=== PATIENT | female | born 1980 | race Caucasian/White ===

== ENCOUNTER 2016-09-14 15:54 | Observation (INO) | payer OTHER ==
[~2016-09-14] VITALS: Ht 167.6 cm; Wt 74.9 kg
--- NOTE | ~2016-09-14 | D ---
[facility] [place] [address] DISCHARGE SUMMARY Name: HUGH LAUREN Room #: 401-I [facility] Sayda Russo#: [id number] Admission: 09/14/16 Attend Phys: Abraham Tate MD Discharge: 09/15/16 Date of : 78 Report #: [id number] THIS REPORT FOR: //name// CC: BLANCA Tate DATE OF SERVICE: 09/15/2016 DATE OF ADMISSION: 09/14/2016. DATE OF DISCHARGE: 09/15/2016. HISTORY OF PRESENT ILLNESS: The patient is healthy 36-year-old female who developed acute epigastric abdominal pain while she was at work. Please refer to the admission H and P for details. On pain medications, her symptoms have completely subsided. The patient was admitted to the hospital for further evaluation and possible treatment. HOSPITALIZATION COURSE: The patient was hospitalized. Her blood work, including liver function tests, was normal. Lipase was in the normal range. The patient had right upper quadrant ultrasound that was unremarkable. CT scan of the abdomen showed hepatic steatosis, but otherwise showed no acute abnormalities. Doppler ultrasonography of the right upper quadrant was performed, that showed no portal vein abnormalities. Since the brief episode of pain, the patient has been completely asymptomatic. Her test is negative. Hepatitis panel is negative. GI team also saw and evaluated the patient. PIPIDA scan is ordered, that is pending. If negative, the patient will be discharged home. DISCHARGE DIAGNOSES: Brief episode of epigastric pain, as detailed above, with essentially unremarkable evaluation. PIPIDA scan and Monospot test are pending at the time of this dictation. If PIPIDA scan is negative, the patient will be discharged home with outpatient followup. <ELECTRONICALLY SIGNED> By: Monica Casas MD 09/18/16 [id number] Monica Casas MD /nt
--- NOTE | ~2016-09-14 | H ---
[facility] [place] [address] HISTORY AND PHYSICAL Name: HUGH LAUREN Room #: 401-I [facility] Sayda Russo#: [id number] Admission: 09/14/16 Attend Phys: Abraham Tate MD Discharge: 09/15/16 Date of : 78 Report #: [id number] THIS REPORT FOR: //name// CC: BLANCA Tate ATTENDING PHYSICIAN: Abraham Tate MD PRIMARY CARE PHYSICIAN: Blanca Johnston NP CHIEF COMPLAINT: Epigastric abdominal pain. HISTORY OF PRESENT ILLNESS: The patient is a 36-year-old female who actually works here at [employer] in the [place]. She came in to work [employer] complaining of epigastric abdominal pain. This had come on fairly suddenly and the pain has persisted throughout the day. Earlier today, she had eaten some peanuts. She does have lot of nausea with this but has not had any vomiting or diarrhea. Denies any recent fever or chills. She has not eaten any spoiled food. No one in her family at home has had any similar symptoms. Earlier in week she thinks she was constipated and so she took 2 Dulcolax and has had multiple stools from that although she denies any watery stools. She has been on a diet taking low carb and high protein food. She received some pain medications in the ER and is now resting more comfortably. PAST MEDICAL HISTORY: None. PAST SURGICAL HISTORY: . HOME MEDICATIONS: None. ALLERGIES: None. 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 She lives at home with her spouse and kids. She drinks beer rarely, maybe once a week. Denies any tobacco use. REVIEW OF SYSTEMS: Twelve point review of systems was reviewed with the patient, otherwise negative unless stated in the HPI. PHYSICAL EXAMINATION: GENERAL: The patient is an alert female in no acute distress. VITAL SIGNS: Temperature is 96.7, heart rate 87, respirations 18, blood pressure is 132/89, oxygen 98% on room air. HEENT: PERRLA. Sclerae are nonicteric. Oral mucosa is pink and moist. NECK: Supple, no JVD noted. CARDIOVASCULAR: Normal S1, S2. No murmurs, rubs or gallops. [facility] [address] [place] [address] HISTORY AND PHYSICAL Name: HUGH LAUREN Room #: 401-I [facility] Sayda Russo#: [id number] Admission: 09/14/16 Attend Phys: Abraham Tate MD Discharge: 09/15/16 Date of : 78 Report #: [id number] RESPIRATORY: Breath sounds are clear bilaterally. No wheezing or rhonchi. Breathing is nonlabored. ABDOMEN: Soft. She had some mild epigastric tenderness, but otherwise abdomen is nondistended with rare bowel sounds. VASCULAR: No edema noted. Pedal pulses are 2+. NEUROLOGIC: The patient is alert and oriented x 3. Speech is clear. She is moving all extremities equally. No focal neuro deficits. LABS AND DIAGNOSTICS: WBC is 9.4, hemoglobin 14.8 and platelets are 293. Sodium 136, potassium 4.2, BUN 17, creatinine 0.8, glucose is 95. LFTs are within normal limits. Cardiac enzymes are negative and lipase is 105. CT of the abdomen shows no bowel obstruction or inflammatory process. There is moderate stool in the ascending and transcending colon. There is a large amount of material within the stomach. There is nothing for biliary or renal obstruction. CT of the abdomen and pelvis showed an enlarged liver that demonstrates general decreased echogenicity. This could represent generalized edema from hepatitis. ASSESSMENT AND PLAN: 1. Epigastric pain. The only abnormality seen on CT was enlarged liver that is concerned with this hepatic edema, could represent hepatitis. Her liver enzymes are normal. We will go ahead and check hepatitis panel. We will also check UA. GI is consulted for further recommendations. Continue with pain meds if her pain is persistent. 2. Constipation. Check TSH level. Continue with stool softeners daily. Not sure if this is contributing to her GI symptoms. 3. Deep venous thrombosis prophylaxis. Place sequential compression devices. We will continue to follow the patient closely throughout the hospitalization and make changes based on clinical status. <ELECTRONICALLY SIGNED> By: SHYLA Fuentes 09/18/16 [id number] SHYLA Fuentes /nt
[2016-09-14 15:55] VITALS: BP 132/89
[2016-09-14 16:07] LABS: ABSOLUTE NEUTROPHILS 5.9 thou/uL (1.4-8.2); BASOPHILS 0.6 % (0.0-2.0); EOSINOPHILS 3.3 % (0.0-3.0); HEMATOCRIT 42.8 % (37.0-47.0); HEMOGLOBIN 14.8 gm/dL (12.0-15.0); LYMPHOCYTES 26.8 % (24.0-44.0); MCHC 34.7 g/dL (28.0-37.0); MCV 89.5 fL (80.0-100.0); MONOCYTES 6.4 % (1.0-8.0); PLATELET COUNT 293 thou/uL (150-400); POLYS 62.9 % (36.0-66.0); RBC 4.79 mil/uL (4.20-5.00); RDW 13.4 % (10.5-14.5); WBC 9.4 thou/uL (4.0-11.0)
[2016-09-14 16:10] LABS: MANUAL DIFF NO
[2016-09-14 16:14] LABS: ANION GAP 9 mmol/L (7-16); BUN 17 mg/dL (7-18); CALCIUM 9.8 mg/dL (8.5-10.1); CHLORIDE 102 mmol/L (98-107); CO2 25 mmol/L (21-32); CREATININE 0.8 mg/dL (0.6-1.0); GLUCOSE 95 mg/dL (74-106); POTASSIUM 4.2 mmol/L (3.5-5.1); SODIUM 136 mmol/L (136-145)
[2016-09-14 16:21] LABS: ALBUMIN 4.2 g/dL (3.4-5.0); ALKALINE PHOSPHATASE 65 U/L (46-116); DIRECT BILIRUBIN < 0.1 mg/dL (<0.1-0.3); SGOT 14 U/L (15-37); SGPT 16 U/L (30-65); TOTAL BILIRUBIN 0.3 mg/dL (<0.1-1.0); TOTAL PROTEIN 8.2 g/dL (6.4-8.2)
[2016-09-14 19:00] VITALS: BP 99/57
[2016-09-14 20:13] VITALS: BP 104/62
[2016-09-15] VITALS: BP 87/55
[2016-09-15 04:08] LABS: HEPATITIS C VIRUS AB <0.1 (0.0-0.9)
[2016-09-15 05:20] VITALS: BP 96/67
[2016-09-15 07:00] VITALS: BP 85/56
[2016-09-15 08:45] LABS: URINE BLOOD TRACE (Negative); URINE COLOR YELLOW; URINE GLUCOSE-RANDOM* NEGATIVE (Negative); URINE KETONES TRACE (Negative); URINE NITRITE NEGATIVE (Negative); URINE PROTEIN (DIPSTICK) NEGATIVE (Negative); URINE SPECIFIC GRAVITY 1.025 (1.003-1.035); URINE UROBILINOGEN 0.2 E.U./dl (0.2-1.0)
[2016-09-15 08:47] LABS: ICTOTEST (BILI CONFIRMATORY) Negative (Negative); URINE BILIRUBIN NEGATIVE (Negative)
[2016-09-15 16:19] VITALS: BP 113/79
[2016-09-15 17:45] VITALS: BP 113/79
== END 2016-09-15 18:15 | disposition home or self-care (01) ==
LOC: ER 15:54 → EROBS 19:21 → 4N 20:05
PROVIDERS: Nurse Practitioner
DX: R16.0 Hepatomegaly, not elsewhere classified (principal); R11.0 Nausea; R61 Generalized hyperhidrosis; I82.409 Acute embolism and thrombosis of unspecified deep veins of unspecified lower extremity; K59.00 Constipation, unspecified; Z72.89 Other problems related to lifestyle; Z87.891 Personal history of nicotine dependence